=== PATIENT | female | born 1960 | race Caucasian/White ===

== ENCOUNTER → 2016-09-09 | Outpatient (CLI) | payer OTHER ==
[~2016-09-09] MED LIST: ALPRAZOLAM0.25 MG PO; AMLODIPINE BESYL5 MG PO; CELEXA20 MG PO; DEXAMETHASONE4 MG PO; KEPPRA XR500 MG PO
--- NOTE | ~2016-09-09 | XA91 ---
[facility] A Service of [facility] RADIOLOGY TEXT RESULTS PATIENT: JARRELL JOINER LOCATION: CIVR : 62 UNIT #: [id number] AGE: [address]: Vilma Xiong MD SEX: F ORDER DR: [id number] [facility] [address] [place], [place] [address] [id number] O MR#: [id number] Acc #: [id number] NAME: JARRELL JOINER : 1960 SEX: F STUDY DATE/TIME: 09/09/2016 8:14 UNIT: CIVR ROOM: STUDY DESCRIPTION: XA CVC Tunneled W Port Attending Physician: Vilma Xiong M.D. Ordering Physician: Vilma Xiong M.D. MEDICAL IMAGING REPORT This report is preliminary unless electronic signature is present EXAM Port-A-Cath insertion, 09/09/2016. HISTORY IV access required for chemotherapy. PROCEDURE Informed consent was obtained. Fentanyl and Versed were administered for IV conscious sedation with hemodynamic monitoring provided nursing staff throughout the procedure, total sedation time 45 minutes. Study was performed with standard sterile technique including sterile preparation and barrier draping, caps and masks as well as sterile gowns and gloves. Real-time sterile ultrasound guidance was used for venous access, both to assess vessel patency and guide access. Using local anesthesia, and real-time ultrasound guidance after a skin incision, jugular vein was accessed with real-time sterile ultrasound guidance, a guidewire was passed, the tract dilated and a peel-away sheath inserted. Again, following local anesthesia, a pocket was created over the right upper chest, Port-A-Cath hub inserted, catheter tunneled to the venotomy site, measured, cut to length, and inserted via a peel-away sheath. Catheter was then accessed and blood return confirmed followed by flush with saline and packing with a heparin solution per protocol. Venotomy site was closed with a single 3-0 Vicryl deep fascial suture and n-butyl cyanoacrylate glue and the pocket was closed with interrupted deep 3-0 Vicryl suture and running subcuticular 4-0 Monocryl suture and n-butyl cyanoacrylate glue. There are no complications and the patient tolerated the procedure well. [facility] A Service of [facility] RADIOLOGY TEXT RESULTS PATIENT: JARRELL JOINER [facility] UN[facility] #: [id number] AGE: [address]: Vilma Xiong MD SEX: F ORDER DR: Single fluoroscopic spot image was obtained along with the 0.2 minutes of fluoroscopy. IMPRESSION Successful sonographically and fluoroscopically guided insertion of a right IJ [id number] without complication. Dictated by... Rosalio Dc M.D. THIS IS AN ELECTRONICALLY VERIFIED REPORT Rosalio Dc M.D. at 09/10/2016 5:04 PM MAX/lidia TD: 09/10/2016 10:12 JOB #: [id number] MEDICAL IMAGING REPORT Page 1 of 1 COPY
[2016-09-09 07:35] LABS: INR 0.9; PARTIAL THROMBOPLASTIN TIME 21.4 SECONDS (23.5-31.3); PROTHROMBIN TIME (PATIENT) 9.6 SECONDS (10.0-11.7)
[2016-09-09 07:52] LABS: HEMATOCRIT 36.3 % (35.0-45.0); HEMOGLOBIN 12.2 gm/dL (12.0-16.0); MEAN CELL VOLUME 92.2 FL (83-96); MEAN CORPUSCULAR HGB CONC 33.7 g/dL (30-36); MEAN PLATELET VOLUME 6.7 FL (6.5-11.5); RED BLOOD COUNT 3.93 X10e (3.90-5.30); RED CELL DISTRIBUTION WIDTH 15.6 % (11.0-15.5); WHITE BLOOD COUNT 6.2 X10e3 (4.0-10.5)
== END | disposition home or self-care (01) ==
LOC: CIVR 06:43
PROVIDERS: Internal Medicine Hematology
DX: C34.01 Malignant neoplasm of right main bronchus (principal); Z45.2 Encounter for adjustment and management of vascular access device; C79.31 Secondary malignant neoplasm of brain; F17.200 Nicotine dependence, unspecified, uncomplicated; Z79.52 Long term (current) use of systemic steroids; Z88.1 Allergy status to other antibiotic agents
CPT/HCPCS: 36415; 76937; 77001; 85027; 85610; 85730; C1788; J0690; J1642; J2250; J3010